=== PATIENT | female | born 1945 | race Caucasian/White ===

== ENCOUNTER 2018-11-04 08:40 | Day surgery (SDC) | payer MEDICARE, BC ==
[2018-11-04] MEDS ORDERED: LACTATED RINGER'S 1,000 ML IV (11:00)
[2018-11-04] MEDS ORDERED: FENTAnyl 50 MCG/ML VIAL (11:35)
[2018-11-04] MEDS ORDERED: ROPIVACAINE 0.5 % 30 ML VIAL (12:37)
[2018-11-04] MEDS ORDERED: CEFAZOLIN 1 GM INJ ×2 (13:20→14:39)
[2018-11-04] MEDS ORDERED: LIDOCAINE 2% (SDV) 5 ML INJ (13:21)
[2018-11-04] MEDS ORDERED: DEXAMETHASONE 4 MG/ML 5 ML INJ (13:21)
[2018-11-04] MEDS ORDERED: SUCCINYLCHOLINE CHLORIDE 100 MG/5 ML SYG IV (13:21)
[2018-11-04] MEDS ORDERED: ROCURONIUM 50 MG INJ (13:21)
[2018-11-04] MEDS ORDERED: FAMOTIDINE 20 MG INJ (13:21)
[2018-11-04] MEDS ORDERED: ONDANSETRON 4 MG INJ (13:21)
[2018-11-04] MEDS ORDERED: PROPOFOL 20 ML (13:21)
[2018-11-04] MEDS: CA CHLORIDE (GM) 10% 10 ML INJ (13:56)
[2018-11-04] MEDS: THROMBIN 5000 UNIT (RECOTHROM) VIAL (13:57)
[2018-11-04] MEDS: POLYMYXIN/BACITRACIN 1L IRRIG (13:58)
[2018-11-04] MEDS: ROPIVACAINE 0.5 % 30 ML VIAL (13:58)
[2018-11-04] MEDS: POVIDONE IODINE 10% 28.4 GM OINT (13:59)
[2018-11-04] MEDS ORDERED: GLYCOPYRROLATE 0.4 MG INJ (14:50)
[2018-11-04] MEDS ORDERED: NEOSTIGMINE 3 MG/3 ML SYRINGE (14:50)
[2018-11-04] MEDS ORDERED: DIPHENHYDRAMINE 50 MG INJ IV (15:00)
[2018-11-04] MEDS ORDERED: HYDROGEN PEROXIDE 118 ML (15:00)
[2018-11-04] MEDS ORDERED: FENTAnyl 50 MCG/ML VIAL IV (15:00)
[2018-11-04] MEDS ORDERED: OXYCODONE/ACETAMINOPHEN (5/325) TAB PO ×3 (15:00→15:30)
[2018-11-04] MEDS ORDERED: HYDROmorphONE 1 MG/5 ML IV SYRINGE IV ×2 (15:00)
[2018-11-04] MEDS ORDERED: PROCHLORPERAZINE 10 MG INJ IV (15:00)
[2018-11-04] MEDS ORDERED: ONDANSETRON 4 MG INJ IV ×2 (15:00→15:30)
[2018-11-04] MEDS ORDERED: SOD CHLORIDE 0.9% 1,000 ML IV (15:06)
[2018-11-04] MEDS ORDERED: morphine 2 MG INJ IV (15:30)
[2018-11-04] MEDS: hydrALAzine 20 MG INJ IV ×2 (16:01→17:55)
[2018-11-04] MEDS: MEPERIDINE 25 MG INJ IV (16:09)
[2018-11-04] MEDS: LABETALOL HCL 20MG INJ IV (18:39)
== END 2018-11-04 19:47 | disposition home or self-care (01) ==
LOC: SDS 08:40
DX: S86.011D Strain of right Achilles tendon, subsequent encounter (principal); X58.XXXD Exposure to other specified factors, subsequent encounter; I10 Essential (primary) hypertension; E78.5 Hyperlipidemia, unspecified
CPT/HCPCS: 27650; 86999